=== PATIENT | male | born 1970 | race Caucasian/White ===

== ENCOUNTER 2020-12-06 09:35 | Emergency (ER) | payer MEDICARE, MEDICAID ==
[2020-12-06] MEDS ORDERED: Aspirin 81 MG Tab.Chew PO ONE (10:06)
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
[2020-12-06 10:21] LABS: BUPRENORPHINE,URINE NEGATIVE (NEGATIVE); MARIJUANA,URINE NEGATIVE (NEGATIVE); METHYLENEDIOXYMETHAMP,UR NEGATIVE (NEGATIVE); PHENCYCLIDINE,URINE NEGATIVE (NEGATIVE)
[2020-12-06 10:33] LABS: CHLORIDE,CL 103 mmol/L (98-107); SODIUM,NA 140 mmol/L (136-145)
[2020-12-06 10:51] LABS: ANION GAP 9.9 mmol/L (5-15)
[2020-12-06 10:52] LABS: ACETAMINOPHEN 0 ug/ml (10-30)
[2020-12-06 11:24] VITALS: BP 181/75; PULSE 71
== END 2020-12-06 13:42 ==
LOC: VM.ED 09:35
DX: F20.0 Paranoid schizophrenia (principal); E78.00 Pure hypercholesterolemia, unspecified; I10 Essential (primary) hypertension; I25.2 Old myocardial infarction; J44.9 Chronic obstructive pulmonary disease, unspecified; K21.9 Gastro-esophageal reflux disease without esophagitis; E11.21 Type 2 diabetes mellitus with diabetic nephropathy; E66.9 Obesity, unspecified; Z20.822 Contact with and (suspected) exposure to COVID-19; Z88.1 Allergy status to other antibiotic agents; Z79.82 Long term (current) use of aspirin; Z79.4 Long term (current) use of insulin; Z79.899 Other long term (current) drug therapy
CPT/HCPCS: 80053; 80143; 80179; 80305-QW; 80307; 81003; 82150; 83690; 83735; 84443; 84484; 85025; 93005; 93010; 99284; 99285-25; U0002